=== PATIENT | female | born 1990 | race Caucasian/White ===

== ENCOUNTER 2017-04-25 13:49 | Emergency (ER) | payer BC ==
[~2017-04-25] VITALS: Ht 165.1 cm; Wt 60.5 kg
[~2017-04-25 13:49] MED LIST: DOCU-131 PO; FERR325T17 PO; HYDR-3240 PO; IBUP-1222 PO; OXYC-302 PO
[2017-04-25] MEDS ORDERED: SODIUM CHLORIDE 0.9% 1,000 ML IV ONE (14:29)
[2017-04-25] MEDS ORDERED: HYDROmorphone 1 MG/ML, 1ML ONE ×3 (14:43→18:33)
[2017-04-25] MEDS ORDERED: ONDANSETRON 2MG/ML, 2ML ONE (14:43)
[2017-04-25] MEDS: HYDROmorphone 1 MG/ML, 1ML IVPush PRN ×4 (14:47→18:39)
[2017-04-25 14:55] LABS: HEMATOCRIT 41.6 % (34.6-47.8); WHITE BLOOD COUNT 8.1 x10^3/uL (3.4-10)
[2017-04-25] MEDS ORDERED: SODIUM CHLORIDE 0.9% 1,000ML IVBOLUS ONE (15:00)
[2017-04-25] MEDS ORDERED: SODIUM CHLORIDE FLUSH 10ML SYR IVF ONE (15:00)
[2017-04-25] MEDS ORDERED: ONDANSETRON 2MG/ML, 2ML IVPush ONE (15:00)
[2017-04-25 15:02] LABS: BLOOD UREA NITROGEN 19 mg/dL (7-18)
[2017-04-25] MEDS ORDERED: DIPHENHYDRAMINE 50 MG/ML, 1ML IVPush ONE (16:30)
[2017-04-25] MEDS ORDERED: METOCLOPRAMIDE 5 MG/ML, 2ML IVPush ONE (16:30)
[2017-04-25] MEDS ORDERED: DIPHENHYDRAMINE 50 MG/ML, 1ML ONE (16:41)
[2017-04-25] MEDS ORDERED: METOCLOPRAMIDE 5 MG/ML, 2ML ONE (16:41)
[2017-04-25] MEDS ORDERED: OMNIPAQUE 350 MG/ML, 100ML BOTTLE ONE (17:41)
[2017-04-25 18:40] VITALS: BP 132/82
== END 2017-04-25 18:41 | disposition home or self-care (01) ==
LOC: ED 15:37
DX: R51 Headache (principal)
CPT/HCPCS: 36415; 70450; 70496; 70498; 80048; 82040; 85025; 96361; 96374; 96375; 96376; 99285; J1170; J1200; J2405; J2765; J7030; Q9967